=== PATIENT | female | born 1965 ===

== ENCOUNTER 2019-08-24 09:55 | Emergency (ER) | payer SELFPAY ==
[2019-08-24] MEDS ORDERED: ACETAMINOPHEN 325 MG TAB ONE (10:44)
[2019-08-24] MEDS ORDERED: ACETAMINOPHEN 325 MG TAB PO ONE (10:44)
[2019-08-24 11:23] LABS: Basophils % (Auto) 0.7 % (0.0-1.8); Eosinophils % (Auto) 0.4 % (0.0-4.3); Hematocrit 41.6 % (30.3-42.9); Hemoglobin 13.7 gm/dl (10.1-14.3); Lymphocytes # (Auto) 1.4 K/mm3 (1.2-5.4); Mean Corpuscular HGB Conc 33 % (30-34); Mean Corpuscular Volume 78 fl (79-97); Monocytes # (Auto) 0.2 K/mm3 (0.0-0.8); Monocytes % (Auto) 4.4 % (0.0-7.3); Platelet Count 159 K/mm3 (140-440); Red Blood Count 5.36 M/mm3 (3.65-5.03)
--- NOTE | 2019-08-24 11:36 | XRay Report ---
CHEST 1 VIEW INDICATION: Chest Pain COMPARISON: None FINDINGS: Support devices: None Heart: Normal Lungs/Pleura: No acute pulmonary or pleural findings. IMPRESSION: 1. No acute disease. Signer Name: Kyle Garcia MD Signed: 08/24/2019 11:31 AM Workstation Name: [id number]
[2019-08-24 11:48] LABS: BUN/Creatinine Ratio 14; Blood Urea Nitrogen 11 mg/dL (7-17); Calcium 10.2 mg/dL (8.4-10.2); Hemolysis Index 4
--- NOTE | 2019-08-24 14:50 | Emergency Department Report ---
ED Chest Pain HPI - General Chief Complaint: Chest Pain Stated Complaint: CHEST PAIN Time Seen by Provider: 08/24/19 14:45 Source: patient, EMS Mode of arrival: Ambulatory Limitations: No Limitations - History of Present Illness Initial Comments: This is a 54-year-old -[place] female who presents to the emergency room with substernal chest pain and discomfort since last night. Past medical history of diabetes type 2 and hypothyroidism. Patient states she recently relocated to this area and seen in a new primary care provider Dr. Contreras Gruber. Patient denies prior history of chest pain. States symptoms started last night and lasted for about 5 minutes and resolved. When she woke up this morning she felt discomfort to substernal chest. Patient states she was seen in urgent care this morning and given Tylenol and sent to the emergency room. Patient states she received 3 nitroglycerin with EMS. She denies radiating pain, shortness of breath, wheezing, fever, chills, palpitations, nausea, numbness or tingling, weakness, or change in speech. MD Complaint: chest pain -: Last night Onset: awoke with symptoms Pain Location: substernal Pain Radiation: none Severity: moderate Severity scale (0 -10): 6 Quality: aching Consistency: intermittent Improves With: nothing Worsens With: nothing re: denies: nausea, vomting, diaphoresis, dyspnea, sense of impending doom Other Symptoms: denies: cough, fever, syncope, rash, acid taste in mouth, leg swelling, palpitations, burping Treatments Prior to Arrival: nitroglycerin Aspirin use within the Past 7 Days: (0) No - Related Data Previous Rx's Medication Instructions Recorded Last Taken Type Ibuprofen [Motrin 800 MG tab] 800 mg PO Q8HR PRN #20 tablet 08/24/19 Unknown Rx Allergies Allergy/AdvReac Type Severity Reaction Status Date / Time adhesive tape Allergy Rash Verified 08/24/19 10:36 latex Allergy Rash Verified 08/24/19 10:36 Sulfa (Sulfonamide Allergy Unknown Verified 08/24/19 10:06 Antibiotics) contrast dye Allergy Unknown Uncoded 08/24/19 10:06 Heart Score - HEART Score History: Slightly suspicious EKG: Normal Age: 45-65 Risk factors: 1-2 risk factors Troponin: < normal limit HEART Score: 2 - Critical Actions Critical Actions: 0-3 pts:0.9-1.7%risk of adverse cardiac event.Candidate for discharge ED Review of Systems ROS: Stated complaint: CHEST PAIN Other details as noted in HPI Constitutional: denies: chills, fever Eyes: denies: eye pain, eye discharge, vision change Respiratory: denies: cough, shortness of breath, wheezing Cardiovascular: chest pain. denies: palpitations Gastrointestinal: denies: abdominal pain, nausea, diarrhea Musculoskeletal: denies: back pain, joint swelling, arthralgia Skin: denies: rash, lesions Neurological: denies: headache, weakness, paresthesias Psychiatric: denies: anxiety, depression ED Past Medical Hx - Past Medical History Previous Medical History?: Yes Hx Diabetes: Yes Hx Headaches / Migraines: Yes - Surgical History Past Surgical History?: No - Social History Smoking Status: Never Smoker Substance Use Type: None - Medications Home Medications: Home Medications Medication Instructions Recorded Confirmed Last Taken Type Ibuprofen [Motrin 800 MG tab] 800 mg PO Q8HR PRN #20 tablet 08/24/19 Unknown Rx ED Physical Exam - General Limitations: No Limitations General appearance: alert, in no apparent distress - ENT ENT exam: Present: mucous membranes moist - Respiratory Respiratory exam: Present: normal lung sounds bilaterally, chest wall tenderness (tenderness along 4th and 5th costocondrial junction, no erythema, ecchymosis, swelling, or deformity). Absent: respiratory distress, wheezes, rales, rhonchi, stridor - Cardiovascular Cardiovascular Exam: Present: regular rate, normal rhythm. Absent: systolic murmur, diastolic murmur, rubs, gallop - GI/Abdominal GI/Abdominal exam: Present: soft, normal bowel sounds. Absent: distended, tenderness, guarding, rebound, rigid - Extremities Exam Extremities exam: Present: normal inspection - Back Exam Back exam: Present: normal inspection - Neurological Exam Neurological exam: Present: alert, oriented X3, normal gait - Psychiatric Psychiatric exam: Present: normal affect, normal mood - Skin Skin exam: Present: warm, dry, intact, normal color. Absent: rash ED Course Vital Signs 08/24/19 08/24/19 08/24/19 10:37 13:56 14:00 Temperature 98.4 F Pulse Rate 78 80 Respiratory 20 14 11 L Rate Blood Pressure 137/71 126/78 O2 Sat by Pulse 99 100 Oximetry 08/24/19 08/24/1908/24/20 14:15 14:30 14:45 Temperature Pulse Rate 87 63 92 H Respiratory 13 12 21 Rate Blood Pressure 126/78 125/79 125/79 O2 Sat by Pulse 100 99 100 Oximetry 08/24/19 14:53 Temperature Pulse Rate Respiratory 18 Rate Blood Pressure O2 Sat by Pulse 99 Oximetry ED Medical Decision Making - Lab Data Result diagrams: 08/24/19 11:03 08/24/19 11:03 Lab Results 08/24/19 08/24/19 08/24/19 Range/Units 11:03 11:03 11:03 WBC 3.5 L (4.5-11.0) K/mm3 RBC 5.36 H (3.65-5.03) M/mm3 Hgb 13.7 (10.1-14.3) gm/dl Hct 41.6 (30.3-42.9) % MCV 78 L (79-97) fl MCH 26 L (28-32) pg MCHC 33 (30-34) % RDW 15.0 (13.2-15.2) % Plt Count 159 (140-440) K/mm3 Lymph % (Auto) 39.0 H (13.4-35.0) % Leake % (Auto) 4.4 (0.0-7.3) % Eos % (Auto) 0.4 (0.0-4.3) % Baso % (Auto) 0.7 (0.0-1.8) % Lymph # 1.4 (1.2-5.4) K/mm3 Leake # 0.2 (0.0-0.8) K/mm3 Eos # 0.0 (0.0-0.4) K/mm3 Baso # 0.0 (0.0-0.1) K/mm3 Seg Neutrophils % 55.5 (40.0-70.0) % Seg Neutrophils # 1.9 (1.8-7.7) K/mm3 Sodium 141 (137-145) mmol/L Potassium 4.3 (3.6-5.0) mmol/L Chloride 100.9 (98-107) mmol/L Carbon Dioxide 24 (22-30) mmol/L Anion Gap 20 mmol/L BUN 11 (7-17) mg/dL Creatinine 0.8 (0.7-1.2) mg/dL Estimated GFR > 60 ml/min BUN/Creatinine Ratio 14 % Glucose 216 H (65-100) mg/dL POC Glucose (70-105) Calcium 10.2 (8.4-10.2) mg/dL Troponin T < 0.010 (0.00-0.029) ng/mL NT-Pro-B Natriuret Pep 31.17 (0-900) pg/mL 08/24/19 08/24/19 08/24/19 Range/Units 14:40 14:43 15:58 WBC (4.5-11.0) K/mm3 RBC (3.65-5.03) M/mm3 Hgb (10.1-14.3) gm/dl Hct (30.3-42.9) % MCV (79-97) fl MCH (28-32) pg MCHC (30-34) % RDW (13.2-15.2) % Plt Count (140-440) K/mm3 Lymph % (Auto) (13.4-35.0) % Leake % (Auto) (0.0-7.3) % Eos % (Auto) (0.0-4.3) % Baso % (Auto) (0.0-1.8) % Lymph # (1.2-5.4) K/mm3 Leake # (0.0-0.8) K/mm3 Eos # (0.0-0.4) K/mm3 Baso # (0.0-0.1) K/mm3 Seg Neutrophils % (40.0-70.0) % Seg Neutrophils # (1.8-7.7) K/mm3 Sodium (137-145) mmol/L Potassium (3.6-5.0) mmol/L Chloride (98-107) mmol/L Carbon Dioxide (22-30) mmol/L Anion Gap mmol/L BUN (7-17) mg/dL Creatinine (0.7-1.2) mg/dL Estimated GFR ml/min BUN/Creatinine Ratio % Glucose (65-100) mg/dL POC Glucose 79 (70-105) Calcium (8.4-10.2) mg/dL Troponin T < 0.010 < 0.010 (0.00-0.029) ng/mL NT-Pro-B Natriuret Pep (0-900) pg/mL 08/24/19 Range/Units 16:45 WBC (4.5-11.0) K/mm3 RBC (3.65-5.03) M/mm3 Hgb (10.1-14.3) gm/dl Hct (30.3-42.9) % MCV (79-97) fl MCH (28-32) pg MCHC (30-34) % RDW (13.2-15.2) % Plt Count (140-440) K/mm3 Lymph % (Auto) (13.4-35.0) % Leake % (Auto) (0.0-7.3) % Eos % (Auto) (0.0-4.3) % Baso % (Auto) (0.0-1.8) % Lymph # (1.2-5.4) K/mm3 Leake # (0.0-0.8) K/mm3 Eos # (0.0-0.4) K/mm3 Baso # (0.0-0.1) K/mm3 Seg Neutrophils % (40.0-70.0) % Seg Neutrophils # (1.8-7.7) K/mm3 Sodium (137-145) mmol/L Potassium (3.6-5.0) mmol/L Chloride (98-107) mmol/L Carbon Dioxide (22-30) mmol/L Anion Gap mmol/L BUN (7-17) mg/dL Creatinine (0.7-1.2) mg/dL Estimated GFR ml/min BUN/Creatinine Ratio % Glucose (65-100) mg/dL POC Glucose 206 H (70-105) Calcium (8.4-10.2) mg/dL Troponin T (0.00-0.029) ng/mL NT-Pro-B Natriuret Pep (0-900) pg/mL - EKG Data -: No EKG Interpreted by Me (EKG interpreted by attending) EKG shows normal: sinus rhythm Rate: normal - EKG Data When compared to previous EKG there are: previous EKG unavailable - Radiology Data Radiology results: report reviewed CHEST 1 VIEW INDICATION: Chest Pain COMPARISON: None FINDINGS: Support devices: None Heart: Normal Lungs/Pleura: No acute pulmonary or pleural findings. IMPRESSION: 1. No acute disease. - Medical Decision Making 54 y.o. female that presents with substernal chest pain since last night. Denies drug use, asthma, SOB, palpations, fever, or dyspnea. Past medical history of diabetes and hypothyroidism. PCP Dr. Contreras Don. Vitals stable. Obtained CMP, CBC, troponin, BNP, and chest xray. Troponins x3 negative, WBC's 3.5, anemia, leukopenia, all other labs unremarkable for emergent chest pain. Chest x-ray negative for acute cardiopulmonary findings. Heart score 2. EKG no overt evidence of STEMI. Due to work-up and exam there is low suspicion for acute coronary syndrome, pulmonary embolus, pneumothorax, or aortic dissection, or ot her emergent problems. Patient's pain was controlled prior to discharge and well appearing. Physical assessment findings of tenderness along 4th & 5th costocondral junction on right. Start ibuprofen. Referrals given for cardiology as needed. Discharged home stable. Follow up with PCP in 24-48 hours. Given strict return instructions. - Differential Diagnosis Acute coronary syndrome, pulmonary embolism, AAA, and pneumothorax Critical care attestation.: If time is entered above; I have spent that time in minutes in the direct care of this critically ill patient, excluding procedure time. ED Disposition Clinical Impression: Chest pain Qualifiers: Chest pain type: intercostal pain Qualified Code(s): R07.82 - Intercostal pain Disposition: TO HOME OR SELFCARE Is pt being admited?: No Condition: Stable Instructions: Chest Pain (ED), Costochondritis (ED) Additional Instructions: Take pain medication every 8 hours as needed for pain. Follow up with your primary care doctor in 24 to 48 hours. I have also provided a list of cook vegetable for follow-up. Return to the emergency room with worsening symptoms such as chest pain, palpitations, difficulty breathing, or radiating pain. Prescriptions: Ibuprofen [Motrin 800 MG tab] 800 mg PO Q8HR PRN #20 tablet PRN Reason: Pain , Severe (7-10) Referrals: FLAQUITA VELÁSQUEZ MD [Staff Physician] - 3-5 Days CONTRERAS DON NP-C [Referring] - 3-5 Days ANCA HARKINS MD [Staff Physician] - 3-5 Days YAYA ROCHE MD [Staff Physician] - 3-5 Days [facility] [Provider Group] - 3-5 Days Forms: Work/School Release Form(ED) Time of Disposition: 17:08
[2019-08-24] MEDS ORDERED: traMADol 50 MG TAB PO ONE (17:10)
[2019-08-24 17:29] VITALS: BP 113/73
== END 2019-08-24 17:32 | disposition home or self-care (01) ==
LOC: ED 09:55
DX: R07.2 Precordial pain (principal); E11.9 Type 2 diabetes mellitus without complications; G43.909 Migraine, unspecified, not intractable, without status migrainosus; Z79.899 Other long term (current) drug therapy; Z88.8 Allergy status to other drugs, medicaments and biological substances
CPT/HCPCS: 36415; 71045; 80048; 82962; 83880; 84484; 85025; 93005; 93010